=== PATIENT | male | born 1960 | race Caucasian/White ===

== ENCOUNTER 2020-01-25 00:02 | Emergency (ER) | payer BC ==
[2020-01-25] MEDS ORDERED: LIDOCAINE 1% 20 ML MDV ONE (00:16)
[2020-01-25] MEDS ORDERED: DOXYCYCLINE 100 MG CAP PO ONE (00:19)
--- NOTE | 2020-01-25 10:33 | ER ---
Nurse's Notes [facility] Name: Troy Hobbs Age: 59 yrs Sex: Male : 1960 Arrival Date: 01/25/2020 Time: 00:06 Bed 6 Private MD: Diagnosis: Superficial laceration - right wrist/hand;Abrasion of knee;Abrasion of hand Presentation: 01/24 00:10 Chief complaint: EMS states: patient got caught on the oyster bed while pulling the rr5 boat cut his right wrist, hand and knee. 00:10 Coronavirus screen: Proceed with normal triage. Ebola Screen: Patient negative for rr5 fever greater than or equal to 101.5 degrees Fahrenheit, and additional compatible Ebola Virus Disease symptoms Patient denies exposure to infectious person. Patient denies travel to an Ebola-affected area in the 21 days before illness onset. Initial Sepsis Screen: Does the patient meet any 2 criteria? No. Patient's initial sepsis screen is negative. Does the patient have a suspected source of infection? No. Patient's initial sepsis screen is negative. Risk Assessment: Do you want to hurt yourself or someone else? Patient reports no desire to harm self or others. Onset of symptoms was January 25, 2020. 00:10 Method Of Arrival: EMS: [facility] rr5 00:10 Acuity: NADINE 3 rr5 Historical: - Allergies: 00:10 Codeine; rr5 - Home Meds: 00:10 Zoloft Oral [Active]; Metformin Oral [Active]; fenofibrate oral oral [Active]; rr5 pantoprazole oral oral [Active]; Tricor Oral [Active]; Colcrys oral oral [Active]; Prednisone Oral [Active]; Sanford Oral [Active]; Ibuprofen Oral [Active]; Celecoxib Oral [Active]; Ventolin Nebulizer [Active]; ropinirole oral oral [Active]; Invokana oral oral [Active]; Triamterene-Hydrochlorothiazid Oral [Active]; Allopurinol Oral [Active]; Crestor oral oral [Active]; - PMHx: 00:10 Diabetes - NIDDM; Hypertension; Arthritis; rr5 - PSHx: 00:10 BKA; Tonsillectomy; Hernia repair; rr5 - Immunization history:: Adult Immunizations up to date, Last tetanus immunization: < 5 years ago. - Social history:: Smoking status: unknown Patient/guardian denies using alcohol, street drugs, tobacco products. - Family history:: not pertinent. - Hospitalizations: : No recent hospitalization is reported. Screenin:19 Abuse screen: Denies threats or abuse. Denies injuries from another. Nutritional rr5 screening: No deficits noted. Tuberculosis screening: No symptoms or risk factors identified. Fall Risk Ambulatory Aid- Crutches/Cane/Walker (15 pts). Gait- Impaired (20 pts.). Total Rasmussen Fall Scale indicates Low Risk Score (25-44 pts). Fall prevention measures have been instituted. Side Rails Up X 2 Placed close to Nursing Station Frequent Obs/Assesments occuring As available Patient and Family Educated on Fall Prevention Program and strategies. Assessment: 00:16 General: Appears in no apparent distress. uncomfortable, Behavior is calm, cooperative, jd3 appropriate for age. Pain: Complains of pain in right wrist and right knee Quality of pain is described as tender, stinging. Neuro: Level of Consciousness is awake, alert, obeys commands, Oriented to person, place, time, situation. Cardiovascular: Denies chest pain, Capillary refill < 3 seconds Patient's skin is warm and dry. Respiratory: Airway is patent Respiratory effort is even, unlabored, Respiratory pattern is regular, symmetrical, Denies cough, shortness of breath. GI: No signs and/or symptoms were reported involving the gastrointestinal system. : No signs and/or symptoms were reported regarding the genitourinary system. EENT: No signs and/or symptoms were reported regarding the EENT system. Derm: Skin is intact, Skin is dry, Skin is normal, Skin temperature is warm. Musculoskeletal: Circulation, motion, and sensation intact. Range of motion: intact in all extremities. Injury Description: Abrasion sustained to right knee Laceration sustained to right wrist is 2.6 to 7.5 cm long, pressure applied for small amount of bleeding, bleeding stopped a small amount of bleeding noted at this time. 00:53 Reassessment: Patient and/or family updated on plan of care and expected duration. Pain jd3 level reassessed. Patient is alert, oriented x 3, equal unlabored respirations, skin warm/dry/pink. Patient states feeling better. 01:09 Reassessment: Patient and/or family updated on plan of care and expected duration. Pain jd3 level reassessed. Patient is alert, oriented x 3, equal unlabored respirations, skin warm/dry/pink. awaiting family arrival for discharge. Vital Signs: 00:10 BP 135 / 72; Pulse 53; Resp 17; Temp 98; Pulse Ox 99% ; Weight 92.08 kg; Height 5 ft. 7 rr5 in. (170.18 cm); Pain 4/10; 00:53 BP 133 / 90; Pulse 56; Resp 17 S; Pulse Ox 96% on R/A; jd3 00:10 Body Mass Index 31.79 (92.08 kg, 170.18 cm) rr5 ED Course: 00:06 Patient arrived in ED. ds1 00:06 Drew Franco MD is Attending Physician. rn 00:10 Arm band placed on right wrist. rr5 00:13 Triage completed. rr5 00:16 Rolando Ramirez RN is Primary Nurse. jd3 00:20 Assist provider with laceration repair on right wrist that was between 2.6 to 7.5 cm jd3 using sutures. Set up tray. Performed by Alli MONTANO Dressed with 4X4s, Patient tolerated well. 00:30 removed wet clothing and placed in a gown. jd3 00:40 Wound care: to abrasion, located on left hand and right knee was cleaned with soap and jd3 water, Patient tolerated well. Wound care: to laceration located on right hand was cleaned with soap and water, Patient tolerated well. 00:52 Patient has correct armband on for positive identification. Placed in gown. Bed in low jd3 position. Call light in reach. Side rails up X 1. Pulse ox on. NIBP on. 01:09 Patient did not have IV access during this emergency room visit. jd3 Administered Medications: 00:11 Drug: Lidocaine (1 %) 5 mg {Note: given by Alli MONTANO.} Route: Infiltration; jd3 00:54 Follow up: Response: No adverse reaction jd3 00:21 Drug: Doxycycline 100 mg Route: PO; jd3 00:55 Follow up: Response: No adverse reaction jd3 Outcome: 00:57 Discharge ordered by . rn 01:09 Condition: stable jd3 01:09 Discharge instructions given to patient, Instructed on discharge instructions, follow up and referral plans. medication usage, Demonstrated understanding of instructions, follow-up care, medications, Prescriptions given X 1. 01:35 Discharged to home via wheelchair, with family. jd3 01:35 Patient left the ED. jd3 Signatures: Shelbie Prather ds1 Drew Franco MD MD rn Davies, Jonathon, RN RN jd3 Caleb Harrell RN RN rr5
--- NOTE | 2020-01-25 10:33 | EDPHYS ---
Physician Documentation [facility] Name: Troy Hobbs Age: 59 yrs Sex: Male : 1960 Arrival Date: 01/25/2020 Time: 00:06 Bed 6 Private MD: ED Physician Drew Franco HPI: 01/24 00:32 This 59 yrs old Male presents to ER via EMS with complaints of Fall Injury. rn 00:32 Details of fall: The patient fell from an upright position. Onset: The symptoms/episode rn began/occurred a few hours ago. Associated injuries: The patient sustained right wrist, right knee. Severity of symptoms: At their worst the symptoms were mild, in the emergency department the symptoms are unchanged. The patient has not experienced similar symptoms in the past. Reports trying to get boat [place] of [place], fell forward, struck right wrist and right knee on oyster bed, + small abrasions to right knee, + cut to right wrist "about 2 inches", reported small amount of bleeding noted, bandage controlled the bleeding. . Historical: - Allergies: 00:10 Codeine; rr5 - Home Meds: 00:10 Zoloft Oral [Active]; Metformin Oral [Active]; fenofibrate oral oral [Active]; rr5 pantoprazole oral oral [Active]; Tricor Oral [Active]; Colcrys oral oral [Active]; Prednisone Oral [Active]; Timblin Oral [Active]; Ibuprofen Oral [Active]; Celecoxib Oral [Active]; Ventolin Nebulizer [Active]; ropinirole oral oral [Active]; Invokana oral oral [Active]; Triamterene-Hydrochlorothiazid Oral [Active]; Allopurinol Oral [Active]; Crestor oral oral [Active]; - PMHx: 00:10 Diabetes - NIDDM; Hypertension; Arthritis; rr5 - PSHx: 00:10 BKA; Tonsillectomy; Hernia repair; rr5 - Immunization history:: Adult Immunizations up to date, Last tetanus immunization: < 5 years ago. - Social history:: Smoking status: unknown Patient/guardian denies using alcohol, street drugs, tobacco products. - Family history:: not pertinent. - Hospitalizations: : No recent hospitalization is reported. ROS: 00:32 Constitutional: Negative for fever, chills, and weight loss, Eyes: Negative for injury, rn pain, redness, and discharge, Neck: Negative for injury, pain, and swelling, Cardiovascular: Negative for chest pain, palpitations, and edema, Respiratory: Negative for shortness of breath, cough, wheezing, and pleuritic chest pain, Abdomen/GI: Negative for abdominal pain, nausea, vomiting, diarrhea, and constipation, Back: Negative for injury and pain, MS/Extremity: + right wrist and right knee injury Skin: + abrasions and laceration Neuro: Negative for headache, weakness, numbness, tingling, and seizure. Exam: 00:32 Constitutional: This is a well developed, well nourished patient who is awake, alert, rn and in no acute distress. Head/Face: Normocephalic, atraumatic. ENT: dry MM, no oral trauma Cardiovascular: Bradycardic, regular, intact and equal distal pulses Respiratory: No increased work of breathing, no retractions or nasal flaring. Abdomen/GI: soft, non-tender Skin: Warm, dry, small superficial abrasions to right knee and left hand, no lacerations requiring sutures. MS/ Extremity: Pulses equal, no cyanosis. Neurovascular intact. Full, normal range of motion. Equal circumference. Right wrist with 4cm irregular but superficial laceration at junction of hand and wrist, volar/lateral surface, no active bleeding, no foreign body Neuro: Awake and alert, GCS 15, oriented to person, place, time, and situation. Cranial nerves II-XII grossly intact. Motor strength 5/5 in all extremities. Sensory grossly intact. Vital Signs: 00:10 BP 135 / 72; Pulse 53; Resp 17; Temp 98; Pulse Ox 99% ; Weight 92.08 kg; Height 5 ft. 7 rr5 in. (170.18 cm); Pain 4/10; 00:53 BP 133 / 90; Pulse 56; Resp 17 S; Pulse Ox 96% on R/A; jd3 00:10 Body Mass Index 31.79 (92.08 kg, 170.18 cm) rr5 Laceration: 00:31 Wound Repair of 4cm ( 1.6in ) subcutaneous laceration to heel of right hand. Distal jmm neuro/vascular/tendon intact. Anesthesia: Local anesthetic administered with 5 mls of 1% lidocaine. Wound prep: Extensive cleansing with betadine by me, Copious irrigation. Skin closed with 5 4-0 Prolene using simple sutures and sterile technique. Skin closed with 1-0 Prolene using loosely approximated. Patient tolerated well. MDM: 00:06 Patient medically screened. rn 00:54 Differential diagnosis: abrasion, laceration. Data reviewed: vital signs, nurses notes, rn and as a result, I will discharge patient. Counseling: I had a detailed discussion with the patient and/or guardian regarding: the historical points, exam findings, and any diagnostic results supporting the discharge/admit diagnosis, the need for outpatient follow up, to return to the emergency department if symptoms worsen or persist or if there are any questions or concerns that arise at home. Response to treatment: the patient's symptoms have markedly improved after treatment, and as a result, I will discharge patient. Special discussion: I discussed with the patient/guardian in detail that at this point there is no indication for admission to the hospital. It is understood, however, that if the symptoms persist or worsen the patient needs to return immediately for re-evaluation. ED course: No other lacerations noted, right wrist laceration sutured, knee abrasions and left hand abrasions cleaned. Will dc home with pcp f/u and abx. . 01/24 00:07 Order name: Wound Care; Complete Time: 00:34 rn 01/24 00:07 Order name: Suture Tray at Bedside; Complete Time: 00:11 rn Administered Medications: 00:11 Drug: Lidocaine (1 %) 5 mg {Note: given by Alli BROWN} Route: Infiltration; jd3 00:54 Follow up: Response: No adverse reaction jd3 00:21 Drug: Doxycycline 100 mg Route: PO; jd3 00:55 Follow up: Response: No adverse reaction jd3 Disposition: 01:50 Co-signature as Attending Physician, Drew Franco MD. rn Disposition: 01/25/20 00:57 Discharged to Home. Impression: Superficial laceration - right wrist/hand, Abrasion of knee, Abrasion of hand. - Condition is Stable. - Discharge Instructions: Abrasion, Laceration Care, Adult, Sutured Wound Care. - Prescriptions for Doxycycline Monohydrate 100 mg Oral Tablet - take 1 tablet by ORAL route every 12 hours for 10 days; 20 tablet. - Medication Reconciliation Form, Thank You Letter, Antibiotic Education, Prescription Opioid Use form. - Follow up: Private Physician; When: 14 days; Reason: Staple/Suture removal. - Problem is new. - Symptoms have improved. Signatures: Alli Simon PA PA jmm Nieto, Roman, MD MD rn Davies, Jonathon, RN RN jd3 Caleb Harrell RN RN rr5 Corrections: (The following items were deleted from the chart) 01:35 00:57 01/25/2020 00:57 Discharged to Home. Impression: Superficial laceration - right jd3 wrist/hand; Abrasion of knee; Abrasion of hand. Condition is Stable. Forms are Medication Reconciliation Form, Thank You Letter, Antibiotic Education, Prescription Opioid Use. Follow up: Private Physician; When: 14 days; Reason: Staple/Suture removal. Problem is new. Symptoms have improved. rn
[2020-01-25 23:27] VITALS: TEMP 98
[2020-01-25 23:52] VITALS: BP 133/90; O2SAT 96
== END 2020-01-25 01:35 | disposition home or self-care (01) ==
LOC: ER 00:02
PROC: 0JQJ0ZZ Repair Right Hand Subcutaneous Tissue and Fascia, Open Approach (ICD-10-PCS; principal; 2020-01-25)
DX: S61.411A Laceration without foreign body of right hand, initial encounter (principal); S80.211A Abrasion, right knee, initial encounter; V94.0XXA Hitting object or bottom of body of water due to fall from watercraft, initial encounter; Y93.89 Activity, other specified; Y92.9 Unspecified place or not applicable; Z88.5 Allergy status to narcotic agent; I10 Essential (primary) hypertension; E11.9 Type 2 diabetes mellitus without complications
CPT/HCPCS: 99284